=== PATIENT | female | born 1995 | race American Indian/Alaskan Native ===

== ENCOUNTER 2019-12-13 17:03 | Emergency (ER) | payer SELFPAY ==
[2019-12-13 17:06] VITALS: BP 120/79
--- NOTE | 2019-12-13 17:36 | Emergency Department Report ---
Chief Complaint: Nausea/Vomiting/Diarrhea Stated Complaint: NAUSEA Time Seen by Provider: 12/13/19 17:32 - HPI History of Present Illness: 24-year-old -[place] female presents to the emergency room complaining of nausea fatigue decreased appetite x2 days. Patient denies any vaginal bleeding vaginal discharge no abdominal pain no chest pain. Patient reports her last menstrual period was 11/03/2019. Patient is 1 para 1. Patient is concerned that she may be . Patient states that she took a home test and it was inconclusive. Patient did not repeat the test. Patient comes in drinking a [employer] drink. - Exam Vital Signs: Vital Signs 12/13/19 17:04 Temperature 97.7 F Pulse Rate 72 Respiratory 16 Rate Blood Pressure 120/79 O2 Sat by Pulse 99 Oximetry Physical Exam: Patient is alert and oriented x3 no acute distress nontoxic in appearance patient is drinking [employer] in the room. MSE screening note: Focused history and physical exam performed. Due to findings the following was ordered: 24-year-old -[place]i female presents to the emergency room complaining of nausea fatigue decreased appetite x2 days. Patient denies any vaginal bleeding vaginal discharge no abdominal pain no chest pain. Patient reports her last menstrual period was 11/03/2019. Patient is 1 para 1. Patient is c oncerned that she may be . Patient states that she took a home test and it was inconclusive. Patient did not repeat the test. Patient comes in drinking a [employer] drink. Discussed with patient that she can follow-up with her primary care provider or [facility] provider to have a repeat test. ED Disposition for MSE Condition: Stable
== END 2019-12-13 20:19 | disposition left against medical advice (07) ==
LOC: ED 17:03
DX: R11.2 Nausea with vomiting, unspecified (principal); Z53.21 Procedure and treatment not carried out due to patient leaving prior to being seen by health care provider